=== PATIENT | male | born 1950 | race Caucasian/White ===

== ENCOUNTER → 2020-02-25 08:51 | Outpatient (CLI) | payer MEDICARE, OTHER ==
[2016-01-04 08:38] VITALS: BMI 31.5
[~2020-02-25 08:51] MED LIST: BAYER CHEWABLE81 MG PO; NEURONTIN 300300 MG PO; PLAVIX75 MG PO; SULFAZINE EC500 MG PO; TENORMIN100 MG PO; ZOCOR20 MG PO; ZYLOPRIM300 MG PO
== END | disposition home or self-care (01) ==
LOC: D.HCCARDIO 08:51
PROVIDERS: ATTEND Internal Medicine Cardiovascular Disease
DX: I25.10 Atherosclerotic heart disease of native coronary artery without angina pectoris (principal)

== ENCOUNTER → 2020-09-18 18:32 | Outpatient (CLI) | payer MEDICARE, OTHER ==
[2020-03-03 12:34] VITALS: BMI 34.0
[~2020-09-18 18:32] MED LIST changes: +CARTIA XT180 MG PO; +CIALIS2.5 MG PO; +CO Q-10150 MG PO; +COZAAR100 MG PO; +PEPCID AC20 MG PO
== END | disposition home or self-care (01) ==
LOC: D.LABREF 18:32
DX: N39.0 Urinary tract infection, site not specified (principal)

== ENCOUNTER → 2020-10-21 18:24 | Outpatient (CLI) | payer MEDICARE, OTHER ==
[2020-03-03 12:34] VITALS: BMI 34.0
== END | disposition home or self-care (01) ==
LOC: D.LABREF 18:24
DX: R68.82 Decreased libido (principal)